=== PATIENT | female | born 1965 | race African-American/Black ===

== ENCOUNTER 2019-12-26 12:46 | Emergency (ER) | payer SELFPAY ==
--- NOTE | 2019-12-26 13:24 | EDPHYS ---
Physician Documentation [facility] Name: Gelacio Gonzales Age: 54 yrs Sex: Female : 1965 Arrival Date: 12/26/2019 Time: 12:49 Bed 20 Private MD: ED Physician Olman Mejia HPI: 12/25 13:17 This 54 yrs old Black Female presents to ER via Ambulatory with complaints of Leg jmm Swelling. 13:18 Onset: The symptoms/episode began/occurred gradually, 2 day(s) ago. Possible cause(s): jmm unknown. Associated signs and symptoms: Pertinent positives: swelling, Pertinent negatives: fever. Modifying factors: the symptoms are alleviated by nothing, the symptoms are aggravated by nothing. This is a 54 year old female with a history of hidradenitis and htn that presents to the ED with complaints of right groin swelling and drainage beginning approx 2 days ago. Denies fever. . Historical: - Allergies: 13:05 No Known Allergies; vg1 - Social history:: Smoking status: unknown. ROS: 13:18 Constitutional: Negative for fever, chills, and weight loss, Cardiovascular: Negative jmm for chest pain, palpitations, and edema, Respiratory: Negative for shortness of breath, cough, wheezing, and pleuritic chest pain. 13:18 Skin: Positive for swelling. 13:18 All other systems are negative. Exam: 13:18 Constitutional: This is a well developed, well nourished patient who is awake, alert, jmm and in no acute distress. Head/Face: atraumatic. Eyes: EOMI, no conjunctival erythema appreciated ENT: Moist Mucus Membranes Neck: Trachea midline, Supple Chest/axilla: Normal chest wall appearance and motion. Cardiovascular: Regular rate and rhythm. No edema appreciated Respiratory: Normal respirations, no respiratory distress appreciated Abdomen/GI: Non distended, soft Back: Normal ROM 13:18 Skin: draining abscess noted ot the right groin, non fluctuant. TTP. 13:18 Neuro: Orientation: is normal, Mentation: is normal, Memory: is normal. 13:18 Psych: Behavior/mood is pleasant, cooperative. Vital Signs: 13:04 BP 132 / 87; Pulse 83; Resp 14; Temp 98.5; Pulse Ox 100% on R/A; Weight 56.7 kg; Height vg1 5 ft. 9 in. (175.26 cm); Pain 8/10; 13:04 Body Mass Index 18.46 (56.70 kg, 175.26 cm) vg1 MDM: 13:10 Patient medically screened. marcela 13:21 Data reviewed: vital signs, nurses notes. Counseling: I had a detailed discussion with marcela the patient and/or guardian regarding: the historical points, exam findings, and any diagnostic results supporting the discharge/admit diagnosis, the need for outpatient follow up, to return to the emergency department if symptoms worsen or persist or if there are any questions or concerns that arise at home. ED course: Patient is alert and non toxic in appearance in the ED. Abscess is small and firm but draining. Patient is prescribed oral abx and given strict return precautions. Patient understood and agrees with the plan of care. . Administered Medications: 13:26 Drug: Bactrim (160 mg-800 mg (DS) 1 tablet Route: PO; vg1 13:26 Drug: Doxycycline 100 mg Route: PO; vg1 Disposition: 18:55 Co-signature as Attending Physician, Olman Mejia MD I agree with the assessment and kdr plan of care. Disposition: 12/26/19 13:24 Discharged to Home. Impression: Cutaneous abscess of groin. - Condition is Stable. - Discharge Instructions: Skin Abscess. - Prescriptions for Bactrim DS 800- 160 mg Oral Tablet - take 1 tablet by ORAL route every 12 hours for 10 days; 20 tablet. Doxycycline Hyclate 100 mg Oral Tablet - take 1 tablet by ORAL route every 12 hours; 20 tablet. - Medication Reconciliation Form, Thank You Letter, Antibiotic Education, Prescription Opioid Use form. - Follow up: Carmine Gibson MD; When: 2 - 3 days; Reason: Recheck today's complaints, Continuance of care, Re-evaluation by your physician. Signatures: Olman Mejia MD MD kdr Mickail, Joel, PA PA jmm Garcia, Victoria, RN RN vg1 Corrections: (The following items were deleted from the chart) 13:32 13:24 12/26/2019 13:24 Discharged to Home. Impression: Cutaneous abscess of groin. vg1 Condition is Stable. Forms are Medication Reconciliation Form, Thank You Letter, Antibiotic Education, Prescription Opioid Use. Follow up: Carmine Gibson; When: 2 - 3 days; Reason: Recheck today's complaints, Continuance of care, Re-evaluation by your physician. marcela
--- NOTE | 2019-12-26 13:24 | ER ---
Nurse's Notes [facility] Name: Gelacio Gonzales Age: 54 yrs Sex: Female : 1965 Arrival Date: 12/26/2019 Time: 12:49 Bed 20 Private MD: Diagnosis: Cutaneous abscess of groin Presentation: 12/25 13:04 Chief complaint: Patient states: Right leg swelling that began 2 days ago. Patient vg1 states has hyperhidrosis. Patient stated an abscess opened on its own 2 days ago causing Right Groin to swell. Patient asking for ABX. Coronavirus screen: Client denies travel out of the [place] in the last 14 days. At this time, the client does not indicate any symptoms associated with coronavirus-19. Ebola Screen: No symptoms or risks identified at this time. Initial Sepsis Screen: Does the patient meet any 2 criteria? No. Patient's initial sepsis screen is negative. Initial Sepsis Screen: Does the patient have a suspected source of infection? No. Patient's initial sepsis screen is negative. Risk Assessment: Do you want to hurt yourself or someone else? Patient reports no desire to harm self or others. Onset of symptoms was December 24, 2019. 13:04 Method Of Arrival: Ambulatory vg1 13:04 Acuity: DEMETRIO 4 vg1 Triage Assessment: 13:13 General: Appears in no apparent distress. comfortable, slender, well groomed, Behavior vg1 is calm, cooperative. Pain: Complains of pain in Right groin area Pain currently is 7 out of 10 on a pain scale. Pain began 2-3 days ago. Historical: - Allergies: 13:05 No Known Allergies; vg1 - Social history:: Smoking status: unknown. Screenin:13 Abuse screen: Denies threats or abuse. Nutritional screening: No deficits noted. vg1 Tuberculosis screening: No symptoms or risk factors identified. Fall Risk Total Dolan Fall Scale indicates No Risk (0-24 pts). Assessment: 13:13 General: Appears in no apparent distress. slender, well groomed, Behavior is calm, vg1 cooperative. 13:13 Pain: Complains of pain in Right groin Pain currently is 7 out of 10 on a pain scale. vg1 Pain began 2-3 days ago. Neuro: Level of Consciousness is awake, alert, obeys commands, Oriented to person, place, time, situation. Cardiovascular: Capillary refill < 3 seconds Patient's skin is warm and dry. Respiratory: Airway is patent Respiratory effort is even, unlabored, Respiratory pattern is regular, symmetrical. GI: No signs and/or symptoms were reported involving the gastrointestinal system. : No signs and/or symptoms were reported regarding the genitourinary system. EENT: No signs and/or symptoms were reported regarding the EENT system. Derm: Skin is intact, is healthy with good turgor, Skin is pink, warm \T\ dry. Musculoskeletal: Range of motion: intact in all extremities. Vital Signs: 13:04 BP 132 / 87; Pulse 83; Resp 14; Temp 98.5; Pulse Ox 100% on R/A; Weight 56.7 kg; Height vg1 5 ft. 9 in. (175.26 cm); Pain 8/10; 13:04 Body Mass Index 18.46 (56.70 kg, 175.26 cm) vg1 ED Course: 12:49 Patient arrived in ED. mr 12:57 Vignesh Richardson PA is PHCP. [facility] 12:57 Olman Mejia MD is Attending Physician. jm 13:03 Merlyn Restrepo RN is Primary Nurse. sv 13:05 Arm band placed on Patient placed in an exam room. sv 13:12 Triage completed. vg1 13:13 Patient has correct armband on for positive identification. Bed in low position. Call vg1 light in reach. Pulse ox on. NIBP on. Door closed. Warm blanket given. 13:24 Carmine Gibson MD is Referral Physician. [facility] 13:38 No provider procedures requiring assistance completed. vg1 Administered Medications: 13:26 Drug: Bactrim (160 mg-800 mg (DS) 1 tablet Route: PO; vg1 13:26 Drug: Doxycycline 100 mg Route: PO; vg1 Outcome: 13:24 Discharge ordered by . [facility] 13:32 Patient left the ED. vg1 13:41 Discharged to home ambulatory. vg1 13:41 Condition: stable 13:41 Discharge instructions given to patient, Instructed on discharge instructions, follow up and referral plans. medication usage, Demonstrated understanding of instructions, follow-up care, medications, Prescriptions given X 2. Signatures: Juana Irwin RN RN Vignesh Rogers PA PA jmm Rivera, Veronica mr Lauro, Merlyn, RN RN vg1
[2019-12-26] MEDS ORDERED: SMZ./TMP. 800/160 MG TABLET ONE (13:35)
[2019-12-26] MEDS ORDERED: DOXYCYCLINE 100 MG CAP PO ONE (13:35)
[2019-12-26 13:37] VITALS: BP 132/87; TEMP 98.5; O2SAT 100
== END 2019-12-26 13:32 | disposition home or self-care (01) ==
LOC: ER 12:46
DX: L02.214 Cutaneous abscess of groin (principal)
CPT/HCPCS: 99283

== ENCOUNTER 2020-02-02 17:19 | Emergency (ER) | payer SELFPAY ==
--- OUTSIDE RECORDS SUMMARY | 2020-02-02 17:21 | XMS REPORT | Continuity of Care Document ---
:1965 Author Organization [facility] Address [address] [place] [address] [place] [id number] Care Team Providers Name Role Phone Unavailable Unavailable Unavailable Problems This patient has no known problems. Allergies, Adverse Reactions, Alerts This patient has no known allergies or adverse reactions. Medications This patient has no known medications. Procedures This patient has no known procedures. Results This patient has no known results.
--- NOTE | 2020-02-02 17:50 | ER ---
Nurse's Notes [facility] Name: Gelacio Gonzales Age: 54 yrs Sex: Female : 1965 Arrival Date: 02/02/2020 Time: 17: Bed 19 Private MD: Diagnosis: Cutaneous abscess of face Presentation: 02/01 17:27 Chief complaint: Patient states: right face abscess x 3 days. Started off as a pimple sv and "mashed on it". Coronavirus screen: Client denies travel out of the [place] in the last 14 days. At this time, the client does not indicate any symptoms associated with coronavirus-19. Ebola Screen: No symptoms or risks identified at this time. Initial Sepsis Screen: Does the patient meet any 2 criteria? No. Patient's initial sepsis screen is negative. Does the patient have a suspected source of infection? No. Patient's initial sepsis screen is negative. Risk Assessment: Do you want to hurt yourself or someone else? Patient reports no desire to harm self or others. Onset of symptoms was January 30, 2020. 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 - Social history:: Smoking status: Patient reports the use of cigarette tobacco products, smokes one-half pack cigarettes per day. Screenin:11 Abuse screen: Denies threats or abuse. Nutritional screening: No deficits noted. ll1 Tuberculosis screening: No symptoms or risk factors identified. Fall Risk None identified. Total Dolan Fall Scale indicates No Risk (0-24 pts). Assessment: 18:08 General: Appears uncomfortable, Behavior is calm, cooperative, appropriate for age. ll1 Pain: Complains of pain in R face near upper cheek Quality of pain is described as aching. Neuro: No deficits noted. Cardiovascular: No deficits noted. Respiratory: No deficits noted. Derm: Abscess located on R facial abscess is dime sized, has no drainage, is hot to touch, is red. Vital Signs: 17:27 BP 114 / 82; Pulse 84; Resp 14; Temp 97.2; Pulse Ox 99% ; Weight 63.5 kg; Height 5 ft. sv 9 in. (175.26 cm); 18:07 BP 109 / 79; Pulse 80; Resp 15; Pulse Ox 99% ; ll1 17:27 Body Mass Index 20.67 (63.50 kg, 175.26 cm) ED Course: 17:22 Patient arrived in ED. mr 17:26 Juana Irwin, RN is Primary Nurse. 17:26 Arm band placed on Patient placed in an exam room, on a stretcher. sv 17:28 Triage completed. sv 17:29 Solomon Rueda NP is PHCP. pm1 17:29 Danny Varela MD is Attending Physician. pm1 18:11 Patient has correct armband on for positive identification. Bed in low position. Call ll1 light in reach. Side rails up X 1. Pulse ox on. NIBP on. 18:11 No provider procedures requiring assistance completed. Patient did not have IV access ll1 during this emergency room visit. 19:06 Primary Nurse role handed off by Juana Irwin RN Administered Medications: 18:07 Drug: Doxycycline 100 mg Route: PO; ll1 18:11 Follow up: Response: No adverse reaction; RASS: Alert and Calm (0) ll1 Outcome: 17:49 Discharge ordered by MD. pm1 18:11 Discharged to home ambulatory. ll1 18:11 Condition: stable 18:11 Discharge instructions given to patient, Instructed on discharge instructions, follow up and referral plans. medication usage, Demonstrated understanding of instructions, follow-up care, medications, Prescriptions given X 1. 18:12 Patient left the ED. ll1 Signatures: Juana Irwin, ARIAS BIANCHI Veronica Mercado mr Solomon Rueda NP ASSISTANT MANAGER/EMBALMER pm1 Dio Genao RN RN [facility]
--- NOTE | 2020-02-02 17:50 | EDPHYS ---
Physician Documentation [facility] Name: Gelacio Gonzales Age: 54 yrs Sex: Female : 1965 Arrival Date: 02/02/2020 Time: 17: Bed 19 Private MD: ED Physician Danny Varela HPI: 02/01 17:49 This 54 yrs old Black Female presents to ER via Ambulatory with complaints of Abscess. pm1 17:49 the patient presents with a swollen area of the right cheek. Description: raised, pm1 swollen. Onset: The symptoms/episode began/occurred 3 day(s) ago. Possible cause(s): acne. Associated signs and symptoms: Pertinent positives: swelling, Pertinent negatives: discharge, drainage, fever. Modifying factors: the symptoms are aggravated by squeezing the lesion and expressing the contents, touching. Severity of symptoms: in the emergency department the symptoms are actually worse. The patient has experienced similar episodes in the past, a few times. The patient has not recently seen a physician, tetanus up to date, about 1 month ago. 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 - Social history:: Smoking status: Patient reports the use of cigarette tobacco products, smokes one-half pack cigarettes per day. ROS: 17:49 Constitutional: Negative for fever, chills, and weight loss, Cardiovascular: Negative pm1 for chest pain, palpitations, and edema, Respiratory: Negative for shortness of breath, cough, wheezing, and pleuritic chest pain, MS/Extremity: Negative for injury and deformity. 17:49 Skin: Positive for abscess, of the right cheek, Negative for cellulitis. Exam: 17:49 Constitutional: This is a well developed, well nourished patient who is awake, alert, pm1 and in no acute distress. Head/Face: Normocephalic, atraumatic. 17:49 Cardiovascular: Exam negative for acute changes, Rate: normal, Rhythm: regular, Pulses: no pulse deficits are appreciated. 17:49 Respiratory: Exam negative for acute changes, respiratory distress, shortness of breath. 17:49 Skin: Appearance: normal except for affected area, cellulitis, is not appreciated, phlegmon present to lateral aspect of right cheek. 17:49 Neuro: Exam negative for acute changes, Orientation: is normal, Gait: is steady, at a normal pace, without difficulty. Vital Signs: 17:27 BP 114 / 82; Pulse 84; Resp 14; Temp 97.2; Pulse Ox 99% ; Weight 63.5 kg; Height 5 ft. sv 9 in. (175.26 cm); 18:07 BP 109 / 79; Pulse 80; Resp 15; Pulse Ox 99% ; ll1 17:27 Body Mass Index 20.67 (63.50 kg, 175.26 cm) sv MDM: 17:29 Patient medically screened. pm1 17:49 Data reviewed: vital signs. Data interpreted: Pulse oximetry: on room air is 99 %. pm1 Interpretation: normal. Counseling: I had a detailed discussion with the patient and/or guardian regarding: the historical points, exam findings, and any diagnostic results supporting the discharge/admit diagnosis, the need for outpatient follow up, to return to the emergency department if symptoms worsen or persist or if there are any questions or concerns that arise at home. 17:50 ED course: Patient is a current resident at [facility]. Patient refused pain pm1 medications from me, even nonnarcotics. Administered Medications: 18:07 Drug: Doxycycline 100 mg Route: PO; ll1 18:11 Follow up: Response: No adverse reaction; RASS: Alert and Calm (0) ll1 Disposition: 18:22 Co-signature as Attending Physician, Danny Varela MD. rn Disposition: 02/02/20 17:49 Discharged to Home. Impression: Cutaneous abscess of face. - Condition is Stable. - Discharge Instructions: Skin Abscess. - Prescriptions for Doxycycline Hyclate 100 mg Oral Tablet - take 1 tablet by ORAL route every 12 hours; 20 tablet. - Medication Reconciliation Form, Thank You Letter, Antibiotic Education, Prescription Opioid Use form. - Follow up: Emergency Department; When: As needed; Reason: Worsening of condition. Follow up: Private Physician; When: 2 - 3 days; Reason: Recheck today's complaints, Continuance of care, Re-evaluation by your physician. - Problem is new. - Symptoms have improved. Signatures: Juana Irwin RN RN Danny Varela MD MD rn Marinas, Patrick, NAYELY METHODS ANALYST pm1 Chadwick, Lynsay, RN RN ll1 Corrections: (The following items were deleted from the chart) 18:12 17:49 02/02/2020 17:49 Discharged to Home. Impression: Cutaneous abscess of face. ll1 Condition is Stable. Forms are Medication Reconciliation Form, Thank You Letter, Antibiotic Education, Prescription Opioid Use. Follow up: Emergency Department; When: As needed; Reason: Worsening of condition. Follow up: Private Physician; When: 2 - 3 days; Reason: Recheck today's complaints, Continuance of care, Re-evaluation by your physician. Problem is new. Symptoms have improved. pm1
[2020-02-02] MEDS ORDERED: DOXYCYCLINE 100 MG CAP PO ONE (18:17)
[2020-02-02 22:58] VITALS: TEMP 97.2; O2SAT 99
[2020-02-02 22:59] VITALS: BP 109/79
== END 2020-02-02 18:12 | disposition home or self-care (01) ==
LOC: ER 17:19
DX: L02.01 Cutaneous abscess of face (principal); F17.210 Nicotine dependence, cigarettes, uncomplicated
CPT/HCPCS: 99283

== ENCOUNTER 2020-02-06 10:33 | Emergency (ER) | payer SELFPAY ==
--- OUTSIDE RECORDS SUMMARY | 2020-02-06 10:35 | XMS REPORT | Continuity of Care Document ---
:1965 Author Organization [facility] t Address [address] [place] [address] [place] [id number] Care Team Providers Name Role Phone Unavailable Unavailable Unavailable Problems This patient has no known problems. Allergies, Adverse Reactions, Alerts This patient has no known allergies or adverse reactions. Medications This patient has no known medications. Procedures This patient has no known procedures. Results This patient has no known results.
[2020-02-06] MEDS ORDERED: LIDOCAINE 1% W/EPI 1:100,000 MDV 20 ML VIAL ONE (11:40)
--- NOTE | 2020-02-06 11:57 | EDPHYS ---
Physician Documentation [facility] Name: Gelacio Gonzales Age: 54 yrs Sex: Female : 1965 Arrival Date: 02/06/2020 Time: 10:35 Bed 16 Private MD: ED Physician Marianne Mead HPI: 02/05 11:30 This 54 yrs old Black Female presents to ER via Ambulatory with complaints of Abscess. cp 11:30 The patient presents with an abscess of the right facial cheek. Description: fluctuant, cp swollen. Associated signs and symptoms: Pertinent negatives: discharge, drainage, fever. 11:30 Onset: The symptoms/episode began/occurred 1 week(s) ago. 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 - Social history:: Smoking status: Patient denies any tobacco usage or history of. ROS: 11:35 Skin: Positive for abscess, of the right facial cheek. cp 11:35 Constitutional: Negative for body aches, chills, fever. cp 11:35 All other systems are negative. Exam: 11:40 Constitutional: The patient appears in no acute distress, alert, awake, non-toxic, well cp developed, well nourished. 11:40 Skin: abscess, that is small, of the left facial cheek, with fluctuance, that is mild. cp Vital Signs: 10:52 BP 130 / 77; Pulse 70; Resp 14; Temp 97.6(TE); Pulse Ox 98% on R/A; Weight 63.5 kg; ss Height 5 ft. 9 in. (175.26 cm); Pain 9/10; 10:52 Body Mass Index 20.67 (63.50 kg, 175.26 cm) ss Procedures: 12:00 I \T\ D: Incision and drainage was performed for an abscess of the right facial cheek cp Prepped with Betadine, Anesthetized with 1 ml's 1% Lidocaine. Incised with #11 blade. Drained moderate amount purulent fluid. the patient tolerated the procedure well. MDM: 11:22 Patient medically screened. cp 11:55 Data reviewed: vital signs, nurses notes, and as a result, I will discharge patient. cp 11:55 Counseling: I had a detailed discussion with the patient and/or guardian regarding: the cp historical points, exam findings, and any diagnostic results supporting the discharge/admit diagnosis, to return to the emergency department if symptoms worsen or persist or if there are any questions or concerns that arise at home. Response to treatment: the patient's symptoms have markedly improved after treatment, and as a result, I will discharge patient. 02/05 11:23 Order name: I\T\D Setup; Complete Time: 11:30 cp Administered Medications: 11:55 Drug: Lidocaine-Epinephrine -1%: (1:100,000) 5 ml {Note: by MARÍA ELENA Clarke.} Volume: 20 ca1 ml; Route: Infiltration; 12:00 Drug: Bactrim (160 mg-800 mg (DS) 1 tablet Route: PO; ca1 12:15 Follow up: Response: No adverse reaction ca1 12:03 Drug: Ibuprofen 800 mg Route: PO; ca1 12:15 Follow up: Response: No adverse reaction; Pain is decreased ca1 Disposition: 12:05 Chart complete. 02/06 11:09 Co-signature as Attending Physician, Marianne Mead MD. ma2 Disposition: 02/06/20 11:56 Discharged to Home. Impression: Cutaneous abscess of face. - Condition is Stable. - Discharge Instructions: Skin Abscess, Incision and Drainage. - Prescriptions for Ibuprofen 800 mg Oral Tablet - take 1 tablet by ORAL route every 8 hours As needed take with food; 30 tablet. Bactrim DS 800- 160 mg Oral Tablet - take 1 tablet by ORAL route every 12 hours for 10 days; 20 tablet. - Medication Reconciliation Form, Thank You Letter, Antibiotic Education, Prescription Opioid Use form. - Follow up: Emery Miguel MD; When: 2 - 3 days; Reason: Worsening of condition. - Problem is new. - Symptoms have improved. Signatures: Bebe Avilez RN RN Yoandy Laureano PA PA cp Alzahri, Mohammad, MD MD ma2 Yeny Menendez RN RN ca1 Corrections: (The following items were deleted from the chart) 02/05 12:16 11:56 02/06/2020 11:56 Discharged to Home. Impression: Cutaneous abscess of face. ca1 Condition is Stable. Forms are Medication Reconciliation Form, Thank You Letter, Antibiotic Education, Prescription Opioid Use. Follow up: Emery Miguel; When: 2 - 3 days; Reason: Worsening of condition. Problem is new. Symptoms have improved. cp
--- NOTE | 2020-02-06 11:57 | ER ---
Nurse's Notes [facility] Name: Gelacio Gonzales Age: 54 yrs Sex: Female : 1965 Arrival Date: 02/06/2020 Time: 10:35 Bed 16 Private MD: Diagnosis: Cutaneous abscess of face Presentation: 02/05 10:52 Chief complaint: Patient states: abscess to R side of face that began 1 week ago. Pt ss was seen in ER Monday and given antibiotics, but it is not going away. Pt is requesting to "priya" the abscess. Coronavirus screen: Client denies travel out of the [place] in the last 14 days. Ebola Screen: Patient denies exposure to infectious person. Patient denies travel to an Ebola-affected area in the 21 days before illness onset. Initial Sepsis Screen: Does the patient meet any 2 criteria? No. Patient's initial sepsis screen is negative. Does the patient have a suspected source of infection? No. Patient's initial sepsis screen is negative. Risk Assessment: Do you want to hurt yourself or someone else? Patient reports no desire to harm self or others. Onset of symptoms was January 30, 2020. 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 - Social history:: Smoking status: Patient denies any tobacco usage or history of. Screenin:25 Abuse screen: Denies threats or abuse. Denies injuries from another. Nutritional ca1 screening: No deficits noted. Tuberculosis screening: No symptoms or risk factors identified. Fall Risk None identified. Assessment: 11:25 General: Appears in no apparent distress. comfortable, Behavior is calm, cooperative, ca1 appropriate for age. Pain: Complains of pain in right confucianism. Neuro: Level of Consciousness is awake, alert, obeys commands, Oriented to person, place, time, situation. Derm: Skin is intact, is healthy with good turgor, Skin is pink, warm \\T\\ dry. Abscess located on right confucianism is dime sized, is hot to touch, is raised. Musculoskeletal: Circulation, motion, and sensation intact. Capillary refill < 3 seconds. Vital Signs: 10:52 BP 130 / 77; Pulse 70; Resp 14; Temp 97.6(TE); Pulse Ox 98% on R/A; Weight 63.5 kg; ss Height 5 ft. 9 in. (175.26 cm); Pain 9/10; 10:52 Body Mass Index 20.67 (63.50 kg, 175.26 cm) ED Course: 10:35 Patient arrived in ED. ds1 10:54 Triage completed. ss 10:54 Arm band placed on right wrist. ss 11:20 Yoandy Laureano PA is PHCP. cp 11:20 Marianne Mead MD is Attending Physician. cp 11:24 Yeny Menendez RN is Primary Nurse. ca1 11:25 Patient has correct armband on for positive identification. Placed in gown. Bed in low ca1 position. Call light in reach. Side rails up X 1. Pulse ox on. NIBP on. Warm blanket given. 11:56 Emery Miguel MD is Referral Physician. cp 12:05 Assist provider with I \\T\\ D: of an abscess on right temporal area Set up I\\T\\D tray. ca 1 Performed by Yoandy RING Dressing with 4X4s, tape. Patient did not have IV access during this emergency room visit. Administered Medications: 11:55 Drug: Lidocaine-Epinephrine -1%: (1:100,000) 5 ml {Note: by MARÍA ELENA Clarke.} Volume: 20 ca1 ml; Route: Infiltration; 12:00 Drug: Bactrim (160 mg-800 mg (DS) 1 tablet Route: PO; ca1 12:15 Follow up: Response: No adverse reaction ca1 12:03 Drug: Ibuprofen 800 mg Route: PO; ca1 12:15 Follow up: Response: No adverse reaction; Pain is decreased ca1 Outcome: 11:56 Discharge ordered by . cp 12:15 Discharged to home ambulatory. ca1 12:15 Condition: stable 12:15 Discharge instructions given to patient, Instructed on discharge instructions, follow up and referral plans. medication usage, wound care, Demonstrated understanding of instructions, follow-up care, medications, wound care, Prescriptions given X 2. 12:16 Patient left the ED. ca1 Signatures: Karrie Baltazar ds1 Bebe Avilez RN RN Page, Yoandy, PA PA cp Acob, Yeny, RN RN ca1
[2020-02-06] MEDS ORDERED: SMZ./TMP. 800/160 MG TABLET ONE (12:15)
[2020-02-06] MEDS ORDERED: IBUPROFEN 400 MG TAB ONE (12:15)
[2020-02-06 12:27] VITALS: BP 130/77; TEMP 97.6; O2SAT 98
== END 2020-02-06 12:16 | disposition home or self-care (01) ==
LOC: ER 10:33
PROC: 0J910ZZ Drainage of Face Subcutaneous Tissue and Fascia, Open Approach (ICD-10-PCS; principal; 2020-02-06)
DX: L02.01 Cutaneous abscess of face (principal)
CPT/HCPCS: 99284